=== PATIENT | female | born 1950 | race Caucasian/White ===

== ENCOUNTER 2017-12-27 17:55 | Observation (INO) | payer OTHER ==
[2017-12-27 18:49] LABS: WHITE BLOOD COUNT 7.2 10^3/ul (4.8-10.8)
[2017-12-27 18:49] LABS: HEMATOCRIT 43.4 % (37.0-47.0); HEMOGLOBIN 14.5 g/dl (12.0-16.0); MEAN CORPUSCULAR HEMOGLOBIN 28.4 pg (29.0-33.0); MEAN CORPUSCULAR HGB CONC 33.4 g/dl (32.0-37.0); MEAN CORPUSCULAR VOLUME 85.1 fl (82.0-101.0); MEAN PLATELET VOLUME 12.3 fl (7.4-10.4); PLATELET COUNT 111 10^3/UL (140-415); RED CELL DISTRIBUTION WIDTH 12.3 % (11.5-14.5)
[2017-12-27 18:53] LABS: POSITIVE DIFF @See below
[2017-12-27 18:54] LABS: ADD MAN DIFF? YES
[2017-12-27] MEDS: SOD CHLORIDE 0.9% 1,000 ML IV (18:54)
[2017-12-27] MEDS: DIAZEPAM 5 MG/ML SYG IV (18:54)
[2017-12-27] MEDS: ONDANSETRON 4 MG INJ IV (18:54)
[2017-12-27 18:59] LABS: ANION GAP 14 (5-13); BLOOD UREA NITROGEN 14 mg/dl (7-20); CALCIUM 9.4 mg/dl (8.4-10.2); CARBON DIOXIDE 23 mmol/L (21-31); CHLORIDE 105 mmol/L (97-110); CREATININE 0.57 mg/dl (0.44-1.00); Estimated GFR > 60 mL/min (>60); GLUCOSE 158 mg/dl (70-220); POTASSIUM 3.7 mmol/L (3.5-5.1); SODIUM 142 mmol/L (135-144)
[2017-12-27 19:01] LABS: INR 0.93; PROTIME 12.6 Sec (11.9-14.9)
[2017-12-27 19:07] LABS: ANISOCYTOSIS 1+ (0-0); BAND NEUTROPHILS #M 0.1 10^3/ul (0.0-0.6); BAND NEUTROPHILS % (M) 2 % (0-4); GIANT THROMBO% (M) 2 % (0-0); LYMPHOCYTES #M 0.7 10^3/ul (0.8-2.9); LYMPHOCYTES % (M) 11 % (15-51); MICROCYTOSIS 1+ (0-0); MONOCYTE #M 0.1 10^3/ul (0.3-0.9); MONOCYTES % (M) 2 % (0-11); PLATELET ESTIMATE DECREASED; PLATELET MORPHOLOGY COMMENT @See below; POLYCHROMASIA 2+ (0-0); SEG NEUT #M 6.1 10^3/ul (1.6-7.5); SEGMENTED NEUTROPHILS (M) % 85 % (39-77); SMUDGE%M 1 % (0-0)
[2017-12-27 19:10] LABS: TROPONIN-I < 0.012 ng/ml (0.000-0.120)
[2017-12-27 20:33] LABS: ADD UMIC YES; UR ASCORBIC ACID NEGATIVE (NEGATIVE); UR BILIRUBIN (Dip) NEGATIVE (NEGATIVE); UR BLOOD (Dip) NEGATIVE (NEGATIVE); UR CLARITY CLEAR (CLEAR); UR COLOR YELLOW (YELLOW); UR GLUCOSE (Dip) 1+ mg/dL (NEGATIVE); UR KETONES (Dip) TRACE mg/dL (NEGATIVE); UR LEUKOCYTE ESTERASE (Dip) 2+ Leu/ul (NEGATIVE); UR NITRITE (Dip) NEGATIVE (NEGATIVE); UR RBC 1 /HPF (0-5); UR SPECIFIC GRAVITY (Dip) 1.014 (1.003-1.030); UR TOTAL PROTEIN (Dip) NEGATIVE (NEGATIVE); UR UROBILINOGEN (Dip) NEGATIVE (NEGATIVE); UR WBC 12 /HPF (0-5)
[2017-12-27] MEDS ORDERED: ONDANSETRON 4 MG INJ IV (21:00)
[2017-12-27] MEDS ORDERED: ACETAMINOPHEN 325 MG TAB PO (21:00)
[2017-12-27] MEDS: CEFTRIAXONE 1 GM/50 ML (PMX) 50 ML IVPB (21:19)
[2017-12-27] MEDS: MECLIZINE 12.5 MG TAB PO (21:19)
[2017-12-27] MEDS ORDERED: CEFTRIAXONE 1 GM/50 ML (PMX) 50 ML IVPB (23:00)
[2017-12-28] MEDS: MECLIZINE 25 MG TAB PO ×4 (01:38→17:24)
[2017-12-28 05:44] LABS: ADD MAN DIFF? NO
[2017-12-28 05:59] LABS: BASOPHILS % 0.4 % (0.0-2.0); EOSINOPHILS % 0.1 % (0.0-7.0); HEMATOCRIT 41.6 % (37.0-47.0); HEMOGLOBIN 13.8 g/dl (12.0-16.0); LYMPHOCYTES # 1.9 10^3/ul (0.8-2.9); LYMPHOCYTES % 22.8 % (15.0-51.0); MEAN CORPUSCULAR HEMOGLOBIN 28.6 pg (29.0-33.0); MEAN CORPUSCULAR HGB CONC 33.2 g/dl (32.0-37.0); MEAN CORPUSCULAR VOLUME 86.1 fl (82.0-101.0); MEAN PLATELET VOLUME 12.1 fl (7.4-10.4); MONOCYTE # 0.6 10^3/ul (0.3-0.9); MONOCYTES % 6.8 % (0.0-11.0); NEUTROPHIL # 5.8 10^3/ul (1.6-7.5); NEUTROPHILS % 69.4 % (39.0-77.0); RED BLOOD COUNT 4.83 10^6/ul (4.20-5.40); RED CELL DISTRIBUTION WIDTH 12.4 % (11.5-14.5)
[2017-12-28 05:59] LABS: WHITE BLOOD COUNT 8.4 10^3/ul (4.8-10.8)
[2017-12-28 06:00] LABS: PLATELET COUNT 135 10^3/UL (140-415); POSITIVE DIFF @See below
[2017-12-28 06:20] LABS: ALANINE AMINOTRANSFERASE 14 IU/L (13-69); ALBUMIN 3.9 g/dl (3.3-4.9); ALBUMIN/GLOBULIN RATIO 1.21; ALKALINE PHOSPHATASE 91 IU/L (42-121); ANION GAP 10 (5-13); ASPARTATE AMINO TRANSFERASE 26 IU/L (15-46); BILIRUBIN,INDIRECT 0.4 mg/dl (0-1.1); BILIRUBIN,TOTAL 0.4 mg/dl (0.2-1.3); BLOOD UREA NITROGEN 10 mg/dl (7-20); CALCIUM 8.7 mg/dl (8.4-10.2); CARBON DIOXIDE 25 mmol/L (21-31); CHLORIDE 108 mmol/L (97-110); CREATININE 0.57 mg/dl (0.44-1.00); Estimated GFR > 60 mL/min (>60); GLUCOSE 106 mg/dl (70-220); POTASSIUM 4.4 mmol/L (3.5-5.1); SODIUM 143 mmol/L (135-144); TOTAL PROTEIN 7.1 g/dl (6.1-8.1)
[2017-12-28] MEDS: AMLODIPINE 5 MG TAB PO (10:44)
[2017-12-28] MEDS: ONDANSETRON 4 MG INJ IV (20:58)
[2017-12-28] MEDS: CEFTRIAXONE 1 GM/50 ML (PMX) 50 ML IVPB (20:59)
[2017-12-29] MEDS: MECLIZINE 25 MG TAB PO ×4 (00:12→18:13)
[2017-12-29 06:36] LABS: MAGNESIUM 2.2 mg/dl (1.7-2.5)
[2017-12-29 06:36] LABS: PHOSPHORUS 3.9 mg/dl (2.5-4.9)
[2017-12-29 07:02] LABS: ANION GAP 8 (5-13); BLOOD UREA NITROGEN 17 mg/dl (7-20); CALCIUM 9.3 mg/dl (8.4-10.2); CARBON DIOXIDE 28 mmol/L (21-31); CHLORIDE 106 mmol/L (97-110); Estimated GFR > 60 mL/min (>60); GLUCOSE 93 mg/dl (70-220); POTASSIUM 4.2 mmol/L (3.5-5.1); SODIUM 142 mmol/L (135-144)
[2017-12-29 07:16] LABS: HDL CHOLESTEROL 43 mg/dl (35-98); LDL CHOLESTEROL,CALCULATED 100 mg/dl; TRIGLYCERIDES 143 mg/dl (0-149)
[2017-12-29 07:16] LABS: CHOLESTEROL 172 mg/dl (100-200)
[2017-12-29] MEDS: AMLODIPINE 5 MG TAB PO (08:54)
[2017-12-29] MEDS: hydrALAzine 20 MG INJ IV (13:53)
[2017-12-29] MEDS: LOSARTAN 25 MG TAB PO (16:07)
[2017-12-29] MEDS: ACETAMINOPHEN 325 MG TAB PO (19:58)
[2017-12-29] MEDS: LOSARTAN 50 MG TAB PO (20:15)
[2017-12-29] MEDS ORDERED: LOSARTAN 25 MG TAB PO (21:00)
== END 2017-12-29 20:10 ==
LOC: E/R 17:55 → 2NE 20:39
DX: R42 Dizziness and giddiness (principal); R11.2 Nausea with vomiting, unspecified; I10 Essential (primary) hypertension
CPT/HCPCS: 36415; 70450; 70551; 71045; 80048; 80053; 80061; 81001; 83735; 84100; 84484; 85025; 85610; 87086; 93005; 93306; 93880; 96374; 96375; 97161; 99285-25

== ENCOUNTER 2018-09-29 05:35 | Emergency (ER) | payer OTHER ==
[2018-09-29 06:05] LABS: ADD MAN DIFF? NO
[2018-09-29 06:11] LABS: ADD UMIC YES; UR ASCORBIC ACID NEGATIVE (NEGATIVE); UR BILIRUBIN (Dip) NEGATIVE (NEGATIVE); UR BLOOD (Dip) 1+ mg/dL (NEGATIVE); UR CLARITY CLEAR (CLEAR); UR COLOR YELLOW (YELLOW); UR GLUCOSE (Dip) NEGATIVE (NEGATIVE); UR KETONES (Dip) NEGATIVE (NEGATIVE); UR LEUKOCYTE ESTERASE (Dip) 1+ Leu/ul (NEGATIVE); UR MUCUS FEW /HPF (NONE SEEN); UR NITRITE (Dip) NEGATIVE (NEGATIVE); UR RBC 2 /HPF (0-5); UR SPECIFIC GRAVITY (Dip) 1.009 (1.003-1.030); UR TOTAL PROTEIN (Dip) NEGATIVE (NEGATIVE); UR UROBILINOGEN (Dip) NEGATIVE (NEGATIVE); UR WBC 9 /HPF (0-5)
[2018-09-29 06:12] LABS: ABNORMAL IP MESSAGE 1; BASOPHIL # 0.1 10^3/ul (0.0-0.1); BASOPHILS % 1.1 % (0.0-2.0); EOSINOPHILS # 0.2 10^3/ul (0.0-0.5); EOSINOPHILS % 3.9 % (0.0-7.0); HEMATOCRIT 41.9 % (37.0-47.0); HEMOGLOBIN 13.7 g/dl (12.0-16.0); LYMPHOCYTES # 2.2 10^3/ul (0.8-2.9); LYMPHOCYTES % 46.7 % (15.0-51.0); MEAN CORPUSCULAR HEMOGLOBIN 28.1 pg (29.0-33.0); MEAN CORPUSCULAR HGB CONC 32.7 g/dl (32.0-37.0); MEAN PLATELET VOLUME 12.6 fl (7.4-10.4); MONOCYTE # 0.5 10^3/ul (0.3-0.9); MONOCYTES % 10.7 % (0.0-11.0); NEUTROPHIL # 1.7 10^3/ul (1.6-7.5); NEUTROPHILS % 37.6 % (39.0-77.0); PLATELET COUNT 91 10^3/UL (140-415); RED BLOOD COUNT 4.87 10^6/ul (4.20-5.40); RED CELL DISTRIBUTION WIDTH 13.4 % (11.5-14.5)
[2018-09-29 06:12] LABS: WHITE BLOOD COUNT 4.6 10^3/ul (4.8-10.8)
[2018-09-29 06:14] LABS: POSITIVE DIFF @See below
[2018-09-29] MEDS: ONDANSETRON 4 MG INJ IV (06:36)
[2018-09-29] MEDS: NITROFURANTOIN (SR) 100 MG CAP PO (06:36)
[2018-09-29] MEDS: morphine 4 MG/ML VIAL IV (06:37)
[2018-09-29 06:43] LABS: ALANINE AMINOTRANSFERASE 35 IU/L (13-69); ALBUMIN 3.9 g/dl (3.3-4.9); ALBUMIN/GLOBULIN RATIO 1.25; ALKALINE PHOSPHATASE 102 IU/L (42-121); ANION GAP 10 (5-13); ASPARTATE AMINO TRANSFERASE 37 IU/L (15-46); BILIRUBIN,INDIRECT 0.4 mg/dl (0-1.1); BILIRUBIN,TOTAL 0.4 mg/dl (0.2-1.3); BLOOD UREA NITROGEN 9 mg/dl (7-20); CALCIUM 8.9 mg/dl (8.4-10.2); CARBON DIOXIDE 26 mmol/L (21-31); CHLORIDE 108 mmol/L (97-110); CREATININE 0.61 mg/dl (0.44-1.00); Estimated GFR > 60 mL/min (>60); GLUCOSE 100 mg/dl (70-220); LIPASE 91 U/L (23-300); POTASSIUM 4.1 mmol/L (3.5-5.1); SODIUM 144 mmol/L (135-144)
== END 2018-09-29 09:19 | disposition home or self-care (01) ==
LOC: E/R 05:35
DX: N30.90 Cystitis, unspecified without hematuria (principal); I10 Essential (primary) hypertension; J45.909 Unspecified asthma, uncomplicated
CPT/HCPCS: 36415; 74176; 80053; 81001; 83690; 85025; 96374; 96375; 99285-25